=== PATIENT | female | born 1990 | race Two or more races ===

== ENCOUNTER 2019-09-08 15:21 | Emergency (ER) | payer BC ==
--- NOTE | 2019-09-08 16:05 | Emergency Department Record ---
History of Present Illness - General Chief Complaint: Laceration(s) Stated Complaint: RT MIDDLE FINGER LAC Time Seen by Provider: 09/08/19 15:43 Source: Patient Mode of Arrival: Ambulatory Limitations: No limitations - History of Present Illness Initial Commments: The patient cut her R 3rd finger on a mandolin food slicer an hour ago. Her Td is UTD. The patient is having mild pain but no numbness. Onset/Timin -: Minutes(s) Location: Other Place: Home Context: Accidental Associated Symptoms: None Treatments Prior to Arrival: Cold therapy - Roya Coma Scale Eye Response: (4) Open spontaneously Motor Response: (6) Obeys commands Verbal Response: (5) Oriented Orya Total: 15 - Related Data Hx Tetanus Toxoid Vaccination: (unknown) Previous Rx's Medication Instructions Recorded Cephalexin [Keflex] 500 mg PO TID #15 cap 09/08/19 Allergies Allergy/AdvReac Type Severity Reaction Status Date / Time No Known Allergies Allergy Unverified 09/06/19 09:54 Travel Screening - Travel/Exposure Within Last 30 Days Have you traveled within the last 30 days?: No - Travel/Exposure Within Last Year Have you traveled outside the [place] 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 - RESPIRATORY Hx Respiratory Disorders: No - CARDIOVASCULAR Hx Cardio Disorders: No - NEURO Hx Neuro Disorders: Yes Hx Seizures: Yes (LAST ONE AT AGE 1) - GI Hx GI Disorders: Yes Hx Ulcer: Yes - Hx Genitourinary Disorders: Yes Hx Kidney Stones: Yes - ENDOCRINE Hx Endocrine Disorders: Yes Hx Diabetes: Yes (PRE) - MUSCULOSKELETAL Hx Musculoskeletal Disorders: Yes Hx Arthritis: Yes Hx Fibromyalgia: Yes Comment:: REYNAUDS - PSYCH Hx Psych Problems: Yes Hx Anxiety: Yes Hx Depression: Yes - HEMATOLOGY/ONCOLOGY Hx Hematology/Oncology Disorders: No Family Medical History Any Significant Family History?: Yes Hx Resp Disorders: Father, Mother *Resp Comment: COPD/ASTHMA Hx Seizures: Mother *Seizure Comment: EPILEPSY Physical Exam - General General Appearance: Alert, Oriented x3, Cooperative, No acute distress - Head Head exam: Atraumatic - Eye Eye exam: Normal appearance - Extremities Extremities exam: Full ROM (There is NORMAL ROM of the R 3rd finger and normal extension. ), Normal capillary refill, Tenderness (only over the avulsed area.), Other (The avulsion is clearly not down to the tendon.). negative: Normal inspection (There is a 5x6 mm skin avulsion over the R 3rd finger dorsally at the radial side of the DIP joint. There is nothing to suture. ) Course Vital Signs 09/08/19 15:23 Pulse Rate 106 H Respiratory 16 Rate Blood Pressure 133/93 Pulse Ox 96 - Reevaluation(s) Reevaluation #1: We will cleanse the wound and dress in a tube gauze dressing. She is to use Tylenol or Motrin for pain and to take the Keflex as directed. 09/08/19 16:02 Disposition Disposition: Discharge Clinical Impression: Avulsion of skin of finger Qualifiers: Encounter type: initial encounter Qualified Code(s): S61.209A - Unspecified open wound of unspecified finger without damage to nail, initial encounter Disposition: Home, Self-Care Condition: (2) Stable Instructions: Laceration (ED) Additional Instructions: Keep dry for 2 days then dress with antibiotic ointment and a bandaid. Take Keflex as directed and use Motrin or Tylenol for pain. Please return to the ER for any worsening issues or signs of infection. Prescriptions: Cephalexin [Keflex] 500 mg PO TID #15 cap Forms: Patient Portal Access Time of Disposition: 16:05 Quality - Quality Measures Quality Measures: N/A - Blood Pressure Screening View Details: Yes Does Patient Have Any of the Following: No Blood Pressure Classification: Hypertensive Reading Systolic Measurement: 133 Diastolic Measurement: 93 Screening for High Blood Pressure: < First Hypertensive BP, F/U Documented > [[id number]] First Hypertensive Follow-up Interventions: Referral to alternative/primary care provider.
== END 2019-09-08 16:19 | disposition home or self-care (01) ==
LOC: ER 15:21
DX: S61.212A Laceration without foreign body of right middle finger without damage to nail, initial encounter (principal); W26.8XXA Contact with other sharp object(s), not elsewhere classified, initial encounter; Y92.009 Unspecified place in unspecified non-institutional (private) residence as the place of occurrence of the external cause
CPT/HCPCS: 99283